=== PATIENT | female | born 1955 | race Caucasian/White ===

== ENCOUNTER 2016-12-06 12:18 | Emergency (ER) | payer MEDICARE, OTHER ==
[2016-12-06] MEDS ORDERED: ONDANSETRON HCL 4 MG/2 ML SOL IV ONE (12:54)
[2016-12-06] MEDS ORDERED: KETOROLAC TROMETHAMINE 30 MG/ML SOL IV ONE (12:54)
[2016-12-06 12:57] VITALS: BP 107/69; PULSE 58; RESP 20; TEMP 98; O2SAT 98
[2016-12-06] MEDS ORDERED: SODIUM CHLORIDE 0.9% 1000 ML SOL IV SCH (13:00)
[2016-12-06] MEDS ORDERED: KETOROLAC TROMETHAMINE 30 MG/ML SOL ONE (13:01)
[2016-12-06] MEDS ORDERED: ONDANSETRON HCL 4 MG/2 ML SOL ONE (13:01)
[2016-12-06 13:11] LABS: BASOPHILS % (AUTO) 1 % (0-3); EOSINOPHILS % (AUTO) 1 % (0-9); HEMATOCRIT 43 % (35-47); MEAN CORPUSCULAR HGB CONC 35.6 gm/dl (32.0-36.0); MEAN CORPUSCULAR VOLUME 84 fL (81-99); MONOCYTES % (AUTO) 6.3 % (0-12); NEUTROPHILS % (AUTO) 65.3 % (37-80)
[2016-12-06 13:25] LABS: ALBUMIN 3.6 gm/dl (3.4-5.0); CALCIUM 9.3 mg/dl (8.5-10.1); POTASSIUM 4.1 mMol/L (3.5-5.1)
== END 2016-12-06 14:26 | disposition home or self-care (01) | DRG 392 ==
LOC: ED 12:18
DX: K52.9 Noninfective gastroenteritis and colitis, unspecified (principal)
CPT/HCPCS: 36415; 80053; 85025; 96365; 96374; 96375; 99284; J1885; J2405

== ENCOUNTER 2018-10-23 14:25 | Emergency (ER) | payer MEDICARE, OTHER ==
[2018-10-23 14:40] LABS: APPEARANCE,URINE Clear; BILIRUBIN,URINE NEGATIVE (NEGATIVE); COLOR,URINE Yellow; GLUCOSE, URINE (UA) NEGATIVE (NEGATIVE); KETONES,URINE NEGATIVE (NEGATIVE); LEUKOCYTE ESTERASE ,URINE NEGATIVE (NEGATIVE); NITRATE,URINE NEGATIVE (NEGATIVE); OCCULT BLOOD,URINE 1+ (NEG-TRACE)
[2018-10-23] MEDS ORDERED: KETOROLAC TROMETHAMINE 30 MG/ML SOL ONE (14:56)
[2018-10-23] MEDS ORDERED: KETOROLAC TROMETHAMINE 30 MG/ML SOL IV ONE (14:56)
[2018-10-23 15:01] LABS: BACTERIA TRACE (< 1+); CRYSTALS NEGATIVE (0-3 AVE/HPF); WBC,URINE 0-3 (0-5AV/HPF)
[2018-10-23] MEDS ORDERED: ONDANSETRON HCL 4 MG/2 ML SOL IV ONE (15:14)
[2018-10-23] MEDS ORDERED: FENTANYL 100MCG/2ML SOL IV ONE (15:15)
[2018-10-23 15:18] LABS: HEMATOCRIT 47 % (35-47); HEMOGLOBIN 15.7 gm/dl (12.0-15.5); MEAN CORPUSCULAR HEMOGLOBIN 29.3 pg (27.0-32.0); MEAN CORPUSCULAR HGB CONC 33.5 gm/dl (32.0-36.0); MEAN CORPUSCULAR VOLUME 88 fL (81-99)
[2018-10-23 15:26] LABS: BILIRUBIN,TOTAL 0.5 mg/dl (0.2-1.0); CARBON DIOXIDE 24.8 mEq/L (21-32); CREATININE 0.72 mg/dl (0.60-1.00); POTASSIUM 4.3 mMol/L (3.5-5.1); TOTAL PROTEIN 7.6 gm/dl (6.4-8.2)
[2018-10-23 15:48] VITALS: TEMP 98.3
[2018-10-23] MEDS ORDERED: FENTANYL 100MCG/2ML SOL ONE (15:59)
[2018-10-23] MEDS ORDERED: ONDANSETRON HCL 4 MG/2 ML SOL ONE (15:59)
[2018-10-23 16:22] LABS: BAND NEUTROPHILS % (MANUAL) 1 %; EOSINOPHILS % (MANUAL) 1 % (0-9); LYMPHOCYTES % (MANUAL) 27 % (10-50); MONOCYTES % (MANUAL) 11 % (0-12); NEUTROPHILS % (MANUAL) 60 % (37-80)
[2018-10-23 16:23] LABS: BASOPHILS % (MANUAL) 0 % (0-3); NORMAL RBCS PRESENT
[2018-10-23] MEDS ORDERED: HYDROMORPHONE HCL 2 MG/ML SOL IV ONE (17:20)
[2018-10-23 17:22] VITALS: RESP 16
[2018-10-23] MEDS ORDERED: HYDROMORPHONE 1 MG/ML SYRINGE ONE (17:25)
[2018-10-23] MEDS ORDERED: HYDROMORPHONE 1 MG/ML SYRINGE IV ONE (17:25)
[2018-10-23 17:50] VITALS: BP 122/67; PULSE 51; O2SAT 95
== END 2018-10-23 17:45 | disposition home or self-care (01) | DRG 392 ==
LOC: ED 14:25
DX: K52.9 Noninfective gastroenteritis and colitis, unspecified (principal); J47.9 Bronchiectasis, uncomplicated; N20.0 Calculus of kidney
CPT/HCPCS: 74176; 80053; 81001; 85007; 85027; 96374; 96375; 99283; 99285; J1885; J2405; J3010; J1170